=== PATIENT | male | born 1965 | race Two or more races ===

== ENCOUNTER 2021-08-09 19:50 | Emergency (ER) | payer OTHER ==
[2021-08-09 20:01] VITALS: BP 132/94; PULSE 82; TEMP 98; BMI 22.8
[2021-08-09] MEDS ORDERED: ASPIRIN 81 MG CHEWABLE TABLETS PO ONE (20:52)
[2021-08-09] MEDS ORDERED: ASPIRIN 81 MG CHEWABLE TABLETS ONE (21:10)
[2021-08-09 21:38] LABS: BASO % 0.3 % (0-2.0); EOS % 1.7 % (0-4.5); HEMOGLOBIN 15.8 GM/dL (11.7-16.9); MEAN CELL VOLUME 91.8 fl (80-96); MEAN PLT VOLUME 8.4 fl (7.5-11.1); MONO % 8.6 % (3.8-10.2); NEUT % 59.4 % (42.8-82.8); PLATELET COUNT 184 10^3/uL (134-434); RBC 4.79 M/mm3 (4.00-5.60); RDW 12.6 % (11.9-15.9); WHITE BLOOD COUNT 6.1 K/mm3 (4.0-10.0)
[2021-08-09 21:55] LABS: ACTIVATED PTT 31.3 SECONDS (25.2-36.5); INR 0.99 (0.83-1.09); PROTHROMBIN TIME (PATIENT) 11.4 SEC (9.7-13.0)
[2021-08-09 21:59] LABS: ALBUMIN 4.1 g/dl (3.4-5.0); BLOOD UREA NITROGEN 14.3 mg/dL (7-18); CALCIUM 8.9 mg/dL (8.5-10.1); MAGNESIUM 2.1 mg/dL (1.8-2.4)
[2021-08-09 22:02] LABS: CREATININE 0.9 mg/dL (0.55-1.3)
[2021-08-09 22:04] LABS: BILIRUBIN,TOTAL 0.6 mg/dL (0.2-1); TOT PROT 7.6 g/dl (6.4-8.2)
== END 2021-08-09 23:39 | disposition home or self-care (01) ==
LOC: JER 19:50
DX: R07.9 Chest pain, unspecified (principal)
CPT/HCPCS: 36415; 71046-TC-FY; 80053; 83735; 84484; 85025; 85610; 85730; 93005; 93010; 99284-25

== ENCOUNTER 2022-12-15 08:44 | Emergency (ER) | payer BC, OTHER ==
[2022-12-15 08:51] VITALS: RESP 18; TEMP 98.8; BMI 25.0
[2022-12-15] MEDS ORDERED: SODIUM CHLORIDE 1,000 ML IV ONE (08:58)
[2022-12-15] MEDS ORDERED: MECLIZINE HCL 25 MG TABLET (FP) PO ONE (08:58)
[2022-12-15] MEDS ORDERED: MECLIZINE HCL 25 MG TABLET (FP) ONE (09:06)
[2022-12-15 09:20] LABS: HEMATOCRIT 44.8 % (35.4-49); HEMOGLOBIN 15.4 G/dL (11.7-16.9); MCH 32.6 pg (25.7-33.7); MCHC 34.5 g/dl (32.0-35.9); MEAN CELL VOLUME 94.7 fl (80-96); MEAN PLT VOLUME 8.2 fl (7.5-11.1); PLATELET COUNT 197.1 10^3/uL (134-434); RBC 4.73 10^6/uL (4.00-5.60); RDW 12.9 % (11.9-15.9); WHITE BLOOD COUNT 7.8 10^3/uL (4.0-10.8)
[2022-12-15 09:40] LABS: ALBUMIN 4.1 g/dl (3.4-5.0); ALK PHOS 53 U/L (45-117); ANION GAP 7 MMOL/L (8-16); BILIRUBIN,TOTAL 0.8 mg/dl (0.2-1); BLOOD UREA NITROGEN 15.3 mg/dl (7-18); CALCIUM 9.3 mg/dl (8.5-10.1); CHLORIDE 97 mmol/L (98-107); CO2 28 mmol/L (21-32); CREATININE 0.9 mg/dl (0.6-1.3); GLUCOSE,RANDOM 319 mg/dl (74-106); POTASSIUM 3.8 mmol/L (3.5-5.1); SGOT/AST 17.2 U/L (15-37); SGPT/ALT 27.2 U/L (7-52); SODIUM 132 mmol/L (136-145); TOT PROT 6.8 g/dl (6.4-8.2)
[2022-12-15 10:19] VITALS: BP 132/96; PULSE 70
== END 2022-12-15 10:20 | disposition home or self-care (01) ==
LOC: FER 08:44
PROC: 3E0337Z Introduction of Electrolytic and Water Balance Substance into Peripheral Vein, Percutaneous Approach (ICD-10-PCS; principal; 2022-12-15)
DX: R42 Dizziness and giddiness (principal); R11.10 Vomiting, unspecified; E11.65 Type 2 diabetes mellitus with hyperglycemia
CPT/HCPCS: 36415; 80053; 82962; 84484; 85027; 93005; 99284-25